=== PATIENT | female | born 1960 | race Caucasian/White ===

== ENCOUNTER 2020-11-19 15:53 | Outpatient (CLI) | payer OTHER, SELFPAY ==
--- NOTE | ~2020-11-19 | XR_ITS ---
XR shoulder LT min 2V 11/19/2020 16:22 Indication: Left shoulder pain Procedure: 4 views left shoulder Comparison: 04/01/2019 Findings: There is a left total shoulder arthroplasty. No acute fracture or traumatic malalignment. T here is anatomic alignment of the acromioclavicular joint. Left shoulder prosthesis well seated. No a cute fracture. No foreign bodies. Visualized lung parenchyma is unremarkable. Impression: 1: No acute bone or joint abnormality. Reviewed, dictated and finalized at location A. Impression: 1: No acute bone or joint abnormality.
== END 2020-11-19 15:54 | disposition home or self-care (01) ==
LOC: ANHIMG 16:05
DX: S46.012A Strain of muscle(s) and tendon(s) of the rotator cuff of left shoulder, initial encounter (principal); X58.XXXA Exposure to other specified factors, initial encounter
CPT/HCPCS: 73030

== ENCOUNTER 2022-03-06 08:28 | Outpatient (CLI) | payer SELFPAY ==
[2022-03-06 19:00] LABS: Basophils Percent Auto 0.7 % (0.2-1.2); Eosinophils Absolute Auto 0.1 K/mm3 (0-0.3); Eosinophils Percent Auto 1.2 % (0-4.4); Hematocrit 46.6 % (37.0-47.0); Hemoglobin 14.7 g/dL (12.0-15.0); Immature Granulocyte Absolute 0.01 K/mm3 (0.00-0.031); Immature Granulocyte Percent A 0.2 % (0-0.5); Lymphocytes Absolute Auto 2.32 K/mm3 (0.9-3.2); Lymphocytes Percent Auto 39.4 % (18.3-44.2); Mean Corpuscular HGB Conc 31.5 g/dl (32-36); Mean Corpuscular Hemoglobin 29.8 pg (26-34); Mean Corpuscular Volume 94.3 fl (80-100); Mean Platelet Volume 11.4 fl (7.4-10.4); Monocytes Absolute Auto 0.5 K/mm3 (0.1-0.6); Monocytes Percent Auto 7.6 % (2.6-8.5); Neutrophils Percent Auto 50.9 % (45.5-73.1); Platelet Count Result 229 k/mm3 (150-375); Red Blood Count 4.94 M/mm3 (4.2-5.4); Red Cell Distribution Width 13.8 % (11.5-14.5); White Blood Count 5.9 K/mm3 (4.5-10.0)
[2022-03-06 20:12] LABS: Alanine Aminotransferase 20 U/L (6-35); Albumin Level 4.2 g/dL (3.5-5.1); Alkaline Phosphatase 77 U/L (38-126); Anion Gap 8 mmol/L (8-16); Aspartate Amino Transferase 33 U/L (14-36); Bilirubin,Total 0.7 mg/dL (0.2-1.3); Blood Urea Nitrogen 20 mg/dL (7-17); Calcium 9.1 mg/dL (8.4-10.2); Carbon Dioxide 25 mmol/L (22-30); Chloride 105 mmol/L (98-107); Cholesterol 184 mg/dL (0-200); Estimated Glomerular Filt Rate > 60; Glucose 90 mg/dL (65-110); HDL Direct 55 mg/dL; Sodium 138 mmol/L (137-145); Triglycerides 72 mg/dL (<150)
[2022-03-06 20:26] LABS: LDL Cholesterol Direct 96 mg/dL
== END 2022-03-06 08:29 | disposition home or self-care (01) ==
PROVIDERS: PCP Nurse Practitioner Family; Visit Provider Nurse Practitioner
DX: Z13.6 Encounter for screening for cardiovascular disorders (principal); R53.83 Other fatigue; Z13.220 Encounter for screening for lipoid disorders
CPT/HCPCS: 36415; 80053; 80061; 84443; 85025

== ENCOUNTER 2022-03-25 10:05 | Outpatient (CLI) | payer SELFPAY ==
--- NOTE | 2022-03-25 10:14 | EST_ITS ---
Patient Info Name: Socorro Pearson Age: 61 years : 1960 Gender: Female Ht: 65 in Wt: 200 lbs BSA: 2.07 m2 Exam Date: 03/25/2022 11:10 AM Exam Location: [facility] Stress Patient Status: Outpatient Admit Date: 03/25/2022 Staff Ordering Physician: Leigh Chan NP Attending Provider: Leigh Chan NP Exercise Technologist: Isabel Mondragon RDCS Exercise Physician: Papo Gama DO Exam Type: CA stress test treadmill Study Info Indications R07.9 - Chest pain, unspecified A treadmill exercise stress test was performed. Summary 1. 1. Negative Valdo exercise stress test for ischemic ST changes by ECG criteria. 2. 2. Good functional capacity, achieving 8.9 METs of workload. 3. 3. Baseline hypertension. 4. 4. Appropriate HR response to exercise. 5. 5. Appropriate HR recovery at 1 minute post exercise. 6. 6. No imaging with stress testing. 7. 7. Patient informed of the above results. Protocol: Valdo Stress ECG Details Stage: REST Duration (min): 0 min : 55 sec Speed (mph): 0.0 Grade (%): 0 HR (bpm): 74 SBP (mmHg): 153 DBP (mmHg): 89 METS: --- Stage: REST Duration (min): 6 min : 0 sec Speed (mph): 0.0 Grade (%): 0 HR (bpm): 88 SBP (mmHg): 153 DBP (mmHg): 89 METS: --- Stage: STAGE 1 Duration (min): 1 min : 0 sec Speed (mph): 1.7 Grade (%): 10 HR (bpm): 94 SBP (mmHg): 153 DBP (mmHg): 89 METS: --- Stage: STAGE 1 Duration (min): 2 min : 0 sec Speed (mph): 1.7 Grade (%): 10 HR (bpm): 100 SBP (mmHg): 153 DBP (mmHg): 89 METS: --- Stage: STAGE 1 Duration (min): 3 min : 0 sec Speed (mph): 1.7 Grade (%): 10 HR (bpm): 105 SBP (mmHg): 153 DBP (mmHg): 89 METS: --- Stage: STAGE 2 Duration (min): 1 min : 0 sec Speed (mph): 2.5 Grade (%): 12 HR (bpm): 114 SBP (mmHg): 189 DBP (mmHg): 61 METS: --- Stage: STAGE 2 Duration (min): 2 min : 0 sec Speed (mph): 2.5 Grade (%): 12 HR (bpm): 125 SBP (mmHg): 175 DBP (mmHg): 81 METS: --- Stage: STAGE 2 Duration (min): 3 min : 0 sec Speed (mph): 2.5 Grade (%): 12 HR (bpm): 129 SBP (mmHg): 175 DBP (mmHg): 81 METS: --- Stage: STAGE 3 Duration (min): 1 min : 0 sec Speed (mph): 3.4 Grade (%): 14 HR (bpm): 145 SBP (mmHg): 175 DBP (mmHg): 81 METS: --- Stage: STAGE 3 Duration (min): 1 min : 0 sec Speed (mph): 3.4 Grade (%): 14 HR (bpm): 145 SBP (mmHg): 175 DBP (mmHg): 81 METS: --- Stage: RECOVERY Duration (min): 0 min : 59 sec Speed (mph): 0.0 Grade (%): 0 HR (bpm): 132 SBP (mmHg): 175 DBP (mmHg): 81 METS: --- Stage: RECOVERY Duration (min): 1 min : 59 sec Speed (mph): 0.0 Grade (%): 0 HR (bpm): 115 SBP (mmHg): 194 DBP (mmHg): 61 METS: --- Stage: RECOVERY Duration (mi
== END 2022-03-25 10:06 | disposition home or self-care (01) ==
PROVIDERS: PCP Nurse Practitioner Family; Visit Provider Nurse Practitioner
DX: R07.89 Other chest pain (principal)
CPT/HCPCS: 93017

== ENCOUNTER 2022-06-06 12:59 | Outpatient (CLI) | payer OTHER, SELFPAY ==
--- NOTE | ~2022-06-06 | US_ITS ---
EXAMINATION: US venous doppler LE RT DATE: 06/06/2022 13:37 INDICATION: Right lower leg pain. TECHNIQUE: Grayscale ultrasound images without and with compression and Doppler ultrasound images of the right lower extremity veins were obtained. COMPARISON: None. FINDINGS: The visualized portions of right common femoral vein, profunda (deep) femoral vein, femoral vein, pop liteal vein, peroneal veins, posterior tibial veins, and greater saphenous vein outflow are patent. T here is thrombus in right gastrocnemius vein. IMPRESSION: 1. Deep vein thrombosis involving right gastrocnemius vein. Reviewed, dictated and finalized at location A.
== END 2022-06-06 13:00 | disposition home or self-care (01) ==
PROVIDERS: PCP Family Medicine; Visit Provider Nurse Practitioner
DX: I82.461 Acute embolism and thrombosis of right calf muscular vein (principal)
CPT/HCPCS: 93971

== ENCOUNTER 2022-06-08 21:29 | Emergency (ER) | payer OTHER, SELFPAY ==
[2022-06-08 21:33] VITALS: BP 152/88; PULSE 79; RESP 18; TEMP 37.3; O2SAT 98
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
== END 2022-06-09 00:39 | disposition home or self-care (01) ==
PROVIDERS: Emergency Provider Emergency Medicine; PCP Family Medicine
DX: I82.461 Acute embolism and thrombosis of right calf muscular vein (principal); Z96.612 Presence of left artificial shoulder joint; Z79.01 Long term (current) use of anticoagulants
CPT/HCPCS: 99282

== ENCOUNTER 2022-06-10 08:04 | Outpatient (CLI) | payer OTHER, SELFPAY ==
--- NOTE | ~2022-06-10 | US_ITS ---
EXAMINATION: US venous doppler LE DATE: 06/10/2022 08:45 INDICATION: Right lower limb pain. TECHNIQUE: Grayscale ultrasound images without and with compression and Doppler ultrasound images of the bilateral lower extremity veins were obtained. COMPARISON: Ultrasound FINDINGS: The visualized portions of right common femoral vein, profunda (deep) femoral vein, femoral vein, pop liteal vein, peroneal veins, and posterior tibial veins are patent. There is thrombus in right gastro cnemius vein, lesser saphenous vein, and a calf varicose vein. The visualized portions of left common femoral vein, profunda femoral vein, femoral vein, popliteal v ein, posterior tibial veins, and greater saphenous vein outflow are patent. There is thrombus in a le ft peroneal vein. IMPRESSION: 1. Deep vein thrombosis involving right gastrocnemius vein and a left peroneal vein. 2. Superficial vein thrombosis involving right lesser saphenous vein and a right calf varicose vein. Reviewed, dictated and finalized at location A. R LEAGUE BASEBALL UMPIRE IMPRESSION: 1. Deep vein thrombosis involving right gastrocnemius vein and a left peroneal vein. 2. Superficial vein thrombosis involving right lesser saphenous vein and a righ t calf varicose vein.
== END 2022-06-10 08:05 | disposition home or self-care (01) ==
PROVIDERS: PCP Family Medicine; Visit Provider Family Medicine
DX: I82.463 Acute embolism and thrombosis of calf muscular vein, bilateral (principal)
CPT/HCPCS: 93970

== ENCOUNTER 2022-06-29 23:40 | Emergency (ER) | payer OTHER, SELFPAY ==
--- NOTE | ~2022-06-29 | CT_ITS ---
EXAMINATION: CTA chest PE protocol DATE: 06/30/2022 01:10 INDICATION: Left chest pain. TECHNIQUE: Computed tomography angiography (CTA) of the chest was performed with 100 mL Omnipaque-350 intravenous contrast timed to evaluate the pulmonary arteries. Coronal maximum intensity projection 3D-reconstructions were created by the technologist. Automated exposure control and iterative reconst ruction technique were employed. The dose-length product was 506.70 mGy-cm. COMPARISON: None. FINDINGS: The lungs demonstrate mild atelectasis. No pleural effusion. There is a 4 mm nodule in left thyroid lobe, likely not clinically significant. The heart size is normal. No pericardial effusion. There is a small sliding hiatal hernia. There is no pulmonary embolus. There is a small sliding hiata l hernia. There is mild left hydronephrosis. There is a left shoulder arthroplasty. There is mild chr onic anterior wedging of multiple vertebral bodies. There is moderate thoracic spondylosis. IMPRESSION: 1. No pulmonary embolus. 2. Mild left hydronephrosis. Reviewed, dictated and finalized at location A. RVISOR ORDER TAKERS
--- NOTE | 2022-06-29 23:42 | ECG_ITS ---
Measurements Intervals Shedd Rate: 80 P: 46 AK: 160 QRS: 18 QRSD: 100 T: 26 QT: 379 QTc: 439 Interpretive Statements SINUS RHYTHM BASELINE ARTIFACT- I, II, III, AVR, AVL, AVF NORMAL ECG NO PREVIOUS ECG AVAILABLE FOR COMPARISON Electronically Signed On 06-30-2022 10:37:43 HEAD OF ENGLISH by Papo Gama D.O.
[2022-06-29 23:59] VITALS: PULSE 69; RESP 19; O2SAT 100
[2022-06-30] VITALS (16 sets, daily range): BP systolic 152–187; BP diastolic 68–84; PULSE 57–78; RESP 12–20; TEMP 36.8; O2SAT 95–100
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
[2022-06-30 00:05] LABS: Basophils Percent Auto 0.5 % (0.2-1.2); Eosinophils Absolute Auto 0.1 K/mm3 (0-0.3); Eosinophils Percent Auto 1.4 % (0-4.4); Hematocrit 45.9 % (37.0-47.0); Hemoglobin 15.1 g/dL (12.0-15.0); Immature Granulocyte Absolute 0.01 K/mm3 (0.00-0.031); Immature Granulocyte Percent A 0.1 % (0-0.5); Lymphocytes Percent Auto 48.1 % (18.3-44.2); Mean Corpuscular HGB Conc 32.9 g/dl (32-36); Mean Corpuscular Hemoglobin 30.1 pg (26-34); Mean Corpuscular Volume 91.6 fl (80-100); Mean Platelet Volume 10.1 fl (7.4-10.4); Monocytes Absolute Auto 0.6 K/mm3 (0.1-0.6); Monocytes Percent Auto 7.7 % (2.6-8.5); Neutrophils Absolute Auto 3.5 K/mm3 (1.3-6.7); Neutrophils Percent Auto 42.2 % (45.5-73.1); Platelet Count Result 233 k/mm3 (150-375); Red Blood Count 5.01 M/mm3 (4.2-5.4); White Blood Count 8.3 K/mm3 (4.5-10.0)
[2022-06-30 00:22] LABS: Alanine Aminotransferase 30 U/L (6-35); Albumin Level 4.4 g/dL (3.5-5.1); Alkaline Phosphatase 90 U/L (38-126); Anion Gap 8 mmol/L (8-16); Aspartate Amino Transferase 33 U/L (14-36); Bilirubin,Total 0.4 mg/dL (0.2-1.3); Blood Urea Nitrogen 21 mg/dL (7-17); Calcium 10.3 mg/dL (8.4-10.2); Carbon Dioxide 25 mmol/L (22-30); Chloride 105 mmol/L (98-107); Estimated CRCL calculation 89 ml/min; Estimated Glomerular Filt Rate > 60; Glucose 105 mg/dL (65-110); INR 1.8; Lipase 556 U/L (23-300); Potassium 3.8 mmol/L (3.4-5.0); Prothrombin Time 19.9 Seconds (11.1-14.7); Sodium 138 mmol/L (137-145)
[2022-06-30 00:23] LABS: Partial Thromboplastin Time 35.3 SECONDS (22.3-36.8)
[2022-06-30] MEDS: SODIUM CHLORIDE 0.9% IV 1,000 ML 999 ML IV CONT (00:25)
[2022-06-30] MEDS: ASPIRIN 81 MG CHEWABLE TABLET 324 MG PO (00:26)
[2022-06-30 00:31] LABS: Troponin I < 0.012 ng/mL (0.000-0.034)
[2022-06-30 02:59] LABS: Troponin I < 0.012 ng/mL (0.000-0.034)
== END 2022-06-30 03:13 | disposition home or self-care (01) ==
PROVIDERS: Emergency Provider Emergency Medicine; PCP Family Medicine
DX: R07.89 Other chest pain (principal); M25.512 Pain in left shoulder; G89.29 Other chronic pain; Z86.718 Personal history of other venous thrombosis and embolism; Z96.612 Presence of left artificial shoulder joint; Z79.01 Long term (current) use of anticoagulants
CPT/HCPCS: 36415; 71275; 80053; 83690; 84484; 85025; 85610; 85730; 93005; 96360; 99284; A9270; J7030; Q9967

== ENCOUNTER 2022-09-02 09:07 | Outpatient (CLI) | payer OTHER, SELFPAY ==
--- NOTE | ~2022-09-02 | US_ITS ---
EXAMINATION: US venous doppler [facility] DATE: 09/02/2022 09:52 INDICATION: Lower limb swelling TECHNIQUE: Gonzalez scale images without and with compression and Doppler images of the bilateral lower e xtremity veins were obtained. COMPARISON: None 06/10/2022 FINDINGS: The right common femoral vein, profunda femoral vein, femoral vein, popliteal vein, peroneal trunk, p osterior tibial veins, and greater saphenous vein are patent. The left common femoral vein, profunda femoral vein, femoral vein, popliteal vein, peroneal trunk, po sterior tibial veins, and greater saphenous vein are patent. IMPRESSION: 1. Patent bilateral lower extremity veins. No evidence of deep venous thrombosis. Reviewed, dictated and finalized at location L. TING MACHINE OPERATOR IMPRESSION: 1. Patent bilateral lower extremity veins. No evidence of deep venous thrombosi s.
== END 2022-09-02 09:08 | disposition home or self-care (01) ==
PROVIDERS: PCP Family Medicine; Visit Provider Internal Medicine Hematology & Oncology
DX: I82.4Y3 Acute embolism and thrombosis of unspecified deep veins of proximal lower extremity, bilateral (principal)
CPT/HCPCS: 93970

== ENCOUNTER 2022-09-15 08:16 | Outpatient (CLI) | payer OTHER, SELFPAY ==
[2022-09-18 19:34] LABS: Homocysteine 5.9 umol/L (<10.4)
[2022-09-19 05:40] LABS: Antithrombin III Activity 116 % normal (80-135)
[2022-09-20 21:03] LABS: Lupus dRVVT Screen 30 sec (<=45); PTT-LA Screen 23 sec (<=40)
[2022-09-21 20:32] LABS: Factor V (Leiden) Mutation NEGATIVE
== END 2022-09-15 08:17 | disposition home or self-care (01) ==
LOC: ANHGOSHLAB 08:20
PROVIDERS: PCP Family Medicine; Visit Provider Internal Medicine Hematology & Oncology
DX: I82.4Y3 Acute embolism and thrombosis of unspecified deep veins of proximal lower extremity, bilateral (principal)
CPT/HCPCS: 36415; 81240; 81241; 83090; 85300; 85303; 85613; 85730; 86146

== ENCOUNTER 2022-10-27 10:59 | Outpatient (CLI) | payer OTHER, SELFPAY | END 2022-10-27 11:00 | disposition home or self-care (01) | LOC: ANHLAB 11:01 | PROVIDERS: PCP Family Medicine; Visit Provider Internal Medicine Hematology & Oncology | DX: I82.4Y3 Acute embolism and thrombosis of unspecified deep veins of proximal lower extremity, bilateral (principal) | CPT/HCPCS: 36415; 81240 ==

== ENCOUNTER 2022-12-21 08:39 | Emergency (ER) | payer OTHER, SELFPAY ==
[2022-12-21 08:49] VITALS: BP 140/70; PULSE 68; RESP 16; TEMP 36.6; O2SAT 100
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
== END 2022-12-21 09:12 | disposition home or self-care (01) ==
PROVIDERS: Emergency Provider Nurse Practitioner Family; PCP Family Medicine
DX: N39.0 Urinary tract infection, site not specified (principal); Z86.718 Personal history of other venous thrombosis and embolism
CPT/HCPCS: 81003; 87077; 87086; 87186; 99213; G0463

== ENCOUNTER 2022-12-30 08:29 | Emergency (ER) | payer OTHER, SELFPAY ==
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
[2022-12-30 08:43] VITALS: BP 131/71; PULSE 59; RESP 16; TEMP 36.6; O2SAT 98
== END 2022-12-30 09:15 | disposition home or self-care (01) ==
PROVIDERS: Emergency Provider Nurse Practitioner; PCP Family Medicine
DX: N39.0 Urinary tract infection, site not specified (principal); Z86.718 Personal history of other venous thrombosis and embolism
CPT/HCPCS: 81003; 87077; 87086; 87088; 99213; G0463

== ENCOUNTER 2023-01-19 16:36 | Emergency (ER) | payer OTHER, SELFPAY ==
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
[2023-01-19 16:45] VITALS: BP 155/82; PULSE 66; RESP 16; TEMP 36.2; O2SAT 99
== END 2023-01-19 16:58 | disposition home or self-care (01) ==
PROVIDERS: Emergency Provider Nurse Practitioner Family; PCP Family Medicine
DX: N30.01 Acute cystitis with hematuria (principal); B96.1 Klebsiella pneumoniae [K. pneumoniae] as the cause of diseases classified elsewhere; Z86.718 Personal history of other venous thrombosis and embolism
CPT/HCPCS: 81003; 87077; 87086; 87147; 87181; 87186; 99213; G0463

== ENCOUNTER 2023-02-20 08:56 | Outpatient (CLI) | payer OTHER, SELFPAY ==
[2023-02-20 09:18] LABS: Basophils Percent Auto 0.6 % (0.2-1.2); Eosinophils Percent Auto 0.8 % (0-4.4); Hematocrit 46.3 % (37.0-47.0); Hemoglobin 14.9 g/dL (12.0-15.0); Immature Granulocyte Absolute 0.01 K/mm3 (0.00-0.031); Immature Granulocyte Percent A 0.2 % (0-0.5); Lymphocytes Absolute Auto 1.62 K/mm3 (0.9-3.2); Mean Corpuscular HGB Conc 32.2 g/dl (32-36); Mean Corpuscular Hemoglobin 30.2 pg (26-34); Mean Corpuscular Volume 93.7 fl (80-100); Mean Platelet Volume 10.4 fl (7.4-10.4); Monocytes Absolute Auto 0.4 K/mm3 (0.1-0.6); Monocytes Percent Auto 8.4 % (2.6-8.5); Neutrophils Absolute Auto 3.1 K/mm3 (1.3-6.7); Platelet Count Result 228 k/mm3 (150-375); Red Blood Count 4.94 M/mm3 (4.2-5.4); Red Cell Distribution Width 13.2 % (11.5-14.5); White Blood Count 5.2 K/mm3 (4.5-10.0)
[2023-02-20 09:20] LABS: Blood Urea Nitrogen 20 mg/dL (8-26); Carbon Dioxide 26 mmol/L (22-30); Chloride 105 mmol/L (98-109); Estimated Glomerular Filt Rate > 60; Glucose 106 mg/dL (70-105); Ionized Calcium (POC) 1.24 mmol/L (1.11-1.31); Potassium 3.8 mmol/L (3.5-4.9); Sodium 142 mmol/L (138-146)
[2023-02-20 12:30] LABS: Alanine Aminotransferase 27 U/L (6-35); Albumin Level 4.5 g/dL (3.5-5.1); Alkaline Phosphatase 73 U/L (38-126); Anion Gap 8 mmol/L (8-16); Aspartate Amino Transferase 32 U/L (14-36); Bilirubin,Total 0.5 mg/dL (0.2-1.3); Blood Urea Nitrogen 19 mg/dL (7-17); Calcium 9.5 mg/dL (8.4-10.2); Carbon Dioxide 27 mmol/L (22-30); Chloride 105 mmol/L (98-107); Estimated Glomerular Filt Rate > 60; Glucose 98 mg/dL (65-110); Potassium 3.9 mmol/L (3.4-5.0); Sodium 140 mmol/L (137-145)
== END 2023-02-20 08:57 | disposition home or self-care (01) ==
LOC: ANHLAB 08:57
PROVIDERS: PCP Family Medicine; Visit Provider Internal Medicine Hematology & Oncology
DX: I82.4Y3 Acute embolism and thrombosis of unspecified deep veins of proximal lower extremity, bilateral (principal)
CPT/HCPCS: 36415; 80047; 80053; 85025

== ENCOUNTER 2023-08-25 09:17 | Outpatient (CLI) | payer MEDICARE, OTHER, SELFPAY ==
[2023-08-25 09:32] LABS: Basophils Percent Auto 0.3 % (0.2-1.2); Eosinophils Absolute Auto 0.1 K/mm3 (0-0.3); Eosinophils Percent Auto 1.4 % (0-4.4); Hematocrit 46.3 % (37.0-47.0); Hemoglobin 14.8 g/dL (12.0-15.0); Immature Granulocyte Absolute 0.02 K/mm3 (0.00-0.031); Immature Granulocyte Percent A 0.3 % (0-0.5); Lymphocytes Percent Auto 27.5 % (18.3-44.2); Mean Corpuscular Hemoglobin 30.6 pg (26-34); Mean Corpuscular Volume 95.9 fl (80-100); Mean Platelet Volume 10.4 fl (7.4-10.4); Monocytes Absolute Auto 0.5 K/mm3 (0.1-0.6); Neutrophils Absolute Auto 4.2 K/mm3 (1.3-6.7); Neutrophils Percent Auto 63.5 % (45.5-73.1); Platelet Count Result 244 k/mm3 (150-375); Red Blood Count 4.83 M/mm3 (4.2-5.4); Red Cell Distribution Width 12.8 % (11.5-14.5); White Blood Count 6.6 K/mm3 (4.5-10.0)
[2023-08-25 09:35] LABS: Blood Urea Nitrogen 20 mg/dL (8-26); Carbon Dioxide 29 mmol/L (22-30); Chloride 104 mmol/L (98-109); Estimated Glomerular Filt Rate > 60; Glucose 91 mg/dL (70-105); Ionized Calcium (POC) 1.23 mmol/L (1.11-1.31); Potassium 3.9 mmol/L (3.5-4.9); Sodium 144 mmol/L (138-146)
[2023-08-25 10:44] LABS: Alanine Aminotransferase 23 U/L (6-35); Albumin Level 4.3 g/dL (3.5-5.1); Alkaline Phosphatase 73 U/L (38-126); Anion Gap 8 mmol/L (8-16); Aspartate Amino Transferase 28 U/L (14-36); Bilirubin,Total 0.6 mg/dL (0.2-1.3); Blood Urea Nitrogen 19 mg/dL (7-17); Calcium 9.6 mg/dL (8.4-10.2); Carbon Dioxide 27 mmol/L (22-30); Chloride 107 mmol/L (98-107); Estimated Glomerular Filt Rate > 60; Glucose 91 mg/dL (65-110); Sodium 142 mmol/L (137-145)
== END 2023-08-25 09:18 | disposition home or self-care (01) ==
LOC: ANHLAB 09:21
PROVIDERS: PCP Family Medicine; Visit Provider Internal Medicine Hematology & Oncology
DX: I82.4Y3 Acute embolism and thrombosis of unspecified deep veins of proximal lower extremity, bilateral (principal)
CPT/HCPCS: 36415; 80047; 80053; 85025

== ENCOUNTER 2023-11-09 14:58 | Outpatient (CLI) | payer MEDICARE, OTHER, SELFPAY ==
--- NOTE | ~2023-11-09 | MM_ITS ---
EXAMINATION: MM screening franck BI w jose guadalupe HISTORY: Screening mammogram TECHNIQUE: Craniocaudal and mediolateral oblique 3-D tomosynthesis images were obtained and synthetic 2-D images were generated. CAD analysis was submitted and interpreted. COMPARISON: No prior mammogram is available for comparison at this institution. BREAST PARENCHYMAL COMPOSITION: The breasts are heterogeneously dense, which may obscure small masses . FINDINGS: There is no evidence of suspicious mass, calcification, or architectural distortion to sugg est malignancy in either breast. IMPRESSION: 1. No mammographic evidence of malignancy. 2. Recommend routine screening mammography in one year. BI-RADS Category 1: Negative Reviewed, dictated and finalized at location B.
== END 2023-11-09 14:59 | disposition home or self-care (01) ==
LOC: ANHIMG 15:01
PROVIDERS: PCP Family Medicine; Visit Provider Nurse Practitioner Family
DX: Z12.31 Encounter for screening mammogram for malignant neoplasm of breast (principal)
CPT/HCPCS: 77063; 77067

== ENCOUNTER 2024-02-23 07:48 | Outpatient (CLI) | payer MEDICARE, OTHER, SELFPAY | END 2024-02-23 07:49 | disposition home or self-care (01) | LOC: ANHAUDIO 07:50 | PROVIDERS: PCP Family Medicine; Visit Provider Nurse Practitioner Family | DX: H93.19 Tinnitus, unspecified ear (principal); H90.3 Sensorineural hearing loss, bilateral | CPT/HCPCS: 92557; 92567 ==

== ENCOUNTER 2024-02-23 10:00 | Outpatient (CLI) | payer MEDICARE, OTHER, SELFPAY ==
[2024-02-23 10:29] LABS: Basophils Percent Auto 0.4 % (0.2-1.2); Eosinophils Percent Auto 0.4 % (0-4.4); Hematocrit 46.3 % (37.0-47.0); Hemoglobin 14.9 g/dL (12.0-15.0); Immature Granulocyte Absolute 0.01 K/mm3 (0.00-0.031); Immature Granulocyte Percent A 0.2 % (0-0.5); Lymphocytes Absolute Auto 1.55 K/mm3 (0.9-3.2); Lymphocytes Percent Auto 28.9 % (18.3-44.2); Mean Corpuscular HGB Conc 32.2 g/dl (32-36); Mean Corpuscular Volume 93.2 fl (80-100); Mean Platelet Volume 10.6 fl (7.4-10.4); Monocytes Absolute Auto 0.4 K/mm3 (0.1-0.6); Monocytes Percent Auto 7.8 % (2.6-8.5); Neutrophils Absolute Auto 3.3 K/mm3 (1.3-6.7); Neutrophils Percent Auto 62.3 % (45.5-73.1); Platelet Count Result 203 k/mm3 (150-375); Red Blood Count 4.97 M/mm3 (4.2-5.4); Red Cell Distribution Width 12.7 % (11.5-14.5); White Blood Count 5.4 K/mm3 (4.5-10.0)
[2024-02-23 10:33] LABS: Blood Urea Nitrogen 20 mg/dL (8-26); Carbon Dioxide 25 mmol/L (22-30); Chloride 106 mmol/L (98-109); Estimated Glomerular Filt Rate > 60; Glucose 94 mg/dL (70-105); Ionized Calcium (POC) 1.23 mmol/L (1.11-1.31); Sodium 142 mmol/L (138-146)
[2024-02-23 11:47] LABS: Cholesterol 186 mg/dL (0-200); HDL Direct 54 mg/dL; Triglycerides 79 mg/dL (<150)
[2024-02-23 11:58] LABS: LDL Cholesterol Direct 99 mg/dL
[2024-02-23 13:28] LABS: Hemoglobin A1C 5.5 % (<5.7)
== END 2024-02-23 10:01 | disposition home or self-care (01) ==
LOC: ANHLAB 10:02
PROVIDERS: Nurse Practitioner Family; PCP Family Medicine; Visit Provider Internal Medicine Hematology & Oncology
DX: R73.03 Prediabetes (principal); I10 Essential (primary) hypertension; E78.5 Hyperlipidemia, unspecified; I82.4Y3 Acute embolism and thrombosis of unspecified deep veins of proximal lower extremity, bilateral
CPT/HCPCS: 36415; 80047; 80061; 83036; 85025; 92557; 92567

== ENCOUNTER → 2024-03-22 09:07 | Outpatient (REF) | payer MEDICARE, OTHER, SELFPAY | LOC: ANHLAB 09:07 | PROVIDERS: PCP Family Medicine; Visit Provider Plastic Surgery | DX: L72.11 Pilar cyst (principal) | CPT/HCPCS: 88305 ==

== ENCOUNTER 2024-09-03 08:02 | Emergency (ER) | payer MEDICARE, OTHER, SELFPAY ==
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
--- OUTSIDE RECORDS SUMMARY | 2024-09-03 08:13 | XMS_ITS | Referral Summary ---
Author Organization [facility] Address [address] [place] [id number] Care Team Providers Care Pharmacology Associate Name Role Phone Joseluis Crisostomo MD Primary Care Provider Allergies No known active allergies Medications multivitamin capsuleIndicati ons:Vitamin Deficiency Prevention Take 1 capsule by mouth every morning Active Active Problems Problem Noted Date Diagnosed Date Nontraumatic complete tear of left rotator cuff 09/20/2019 Overview (09/20/2019): Added automatically from request for surgery [id number] Primary osteoarthritis of left shoulder 09/20/19 20 Overview (09/20/2019): Added automatically from request for surgery [id number] Left shoulder pain 09/06/2019 Social History Tobacco Use Types Packs/Day Years [...] on file Legal Sex Female 8:05 AM GRIP Gender Identity Not on file Sexual Orientation Not on file Last Filed Vital Signs Vital Sign Reading [...] 12/14/2019 6:12 AM CDT Plan of Treatment Not on file Medical Devices Implanted Type Area Shank Inspector Device Identifier Shelf Expiration Date Model / Serial / Lot [employer] [id number] Base Plate 26mm Tm Reverse 20m - Sn/A - [id number] Implanted:Qty: 1 on 12/14/2019 by Oscar Martini MD at [facility] Other - see comments Left: Shoulder [employer] 09/02/2029 [id number] / N/A / [id number] [employer] 23.030 Ncb Anatomical Shoulder 4.5mm 30mm Inverse Reverse Lock Self Tap - Sn/A - [id number] Implanted:Qty: 1 on 12/14/2019 by Oscar Martini MD at [facility] Other - see comments Left: Shoulder [employer] 06/02/2024.04819.030 / N/A / [id number] [employer] [id number] 10mm 130mm Shoulder Stem Humeral Trabecular Metal Tivanium - Sn/A - [id number] Implanted:Qty: 1 on 12/14/2019 by Oscar Martini MD at [facility] Other - see comments Left: Shoulder [employer] 09/02/2029 [id number] / N/A / [id number] [employer] [id number] 36mm Reverse Humerus 7d +0mm Offset Standard Liner Shoulder - Sn/A - [id number] Implanted:Qty: 1 on 12/14/2019 by Oscar Martini MD at [facility] Other - see comments Left: Shoulder [employer] 08/02/2026 [id number] / N/A / [id number] [employer] 23.036 Ncb Anatomical Shoulder 4.5mm 36mm Inverse Reverse Lock Self Tap - Sn/A - [id number] Implanted:Qty: 1 on 12/14/2019 by Oscar Martini MD at [facility] Screw Left: Shoulder [employer] 04/02/202423.036 / N/A / [id number] Description:REF 036 [employer] [id number] Glenosphere 36mm +5mm Offset - Sn/A - [id number] Implanted:Qty: 1 on 12/14/2019 by Oscar Martini MD at [facility] Left: Shoulder [employer] 04/02/2029 [id number] / N/A / [id number] Description:REF [id number] Advance Directives For more information, please contact: [phone] * Full Code (Latest Code Status on File) Date Activated Date Inactivated Comments 12/14/2019 10:54 AM 12/15/2019 3:29 PM Care Teams Pharmacology Associate Relationship Specialty Start Date End Date Joseluis Crisostomo MD PCP - General Family Practice 01/07/22
--- OUTSIDE RECORDS SUMMARY | 2024-09-03 08:13 | XMS_ITS | Clinical Summary ---
Author Organization [facility] Kasandra leary [facility] Address [address] [place] [address] Care Team Providers Care Certified Health Education Specialist Name Role Phone Joseluis Crisostomo MD Primary Care Provider Allergies No known active allergies Medications lisinopriL (PRINIVIL) 10 mg tablet Take 10 mg by mouth daily. Active rivaroxaban (Xarelto) 10 mg Tablet TAKE 1 TABLET(10 MG) BY MOUTH DAILY WITH SUPPER 90 Tablet 1 04/05/2024 Active Active Problems No known active problems Encounters Date Type Department Care Team Description 08/24/2024 External Device Data STL ABSTRACTION Provider, Abstract from Last 3 Months Family History Medical History Relation Name Comments No Known Problems Brother 1 Hypertension Brother 2 No Known Problems Daughter 1 No Known Problems Daughter 2 No Known Problems Daughter 3 Heart Disease Father Alzheimer's Disease Mother No Known Problems Son Relation Name Status Comments Brother 1 Alive Brother 2 Alive Daughter 1 Alive Daughter 2 Alive Daughter 3 Alive Father Mother Son Alive Social History Tobacco Use Types Packs/Day Years Used Date Smoking Tobacco: Never Smokeless Tobacco: Never Tobacco Cessation:Counseling Given: Not Answered Alcohol Use Standard Drinks/Week Comments Never 0 (1 standard drink = 0.6 oz pur e alcohol) Comments Unknown Sex and Gender Information Value Date Recorded Sex Assigned at Not on file Legal Sex Female 4:23 PM BLUE LINE HANGER Gender Identity Not on file Sexual Orientation Not on file Last Filed Vital Signs Vital Sign Reading Time Taken Comments Blood Pressure 139/81 02/23/2024 10:34 AM CDT Pulse 69 02/23/2024 10:34 AM CDT Temperature 36.8 ??C (98.2 ??F) 02/23/2024 10:34 AM C DT Respiratory Rate 15 02/23/2024 10:34 AM CDT Oxygen Saturation 97% 02/23/2024 10:34 AM CDT Inhaled Oxygen Concentration - - Weight 75.5 kg (166 lb 6.4 oz) 02/23/2024 10:34 AM CDT Height 165.1 cm (5' 5 ) 07/21/2022 2:59 PM BLUE LINE HANGER Body Mass Index 27.69 07/21/2022 2:59 PM BLUE LINE HANGER Plan of Treatment Upcoming Encounters Date Type Department Care Team (Late st Contact Info) Description 02/28/2025 10:00 AM CDT Office Visit [facility] Oncology and Hematology - [place] [address] [facility] [address] [place] [address] Sea Cha MD [address] [facility] [employer] [address] [place] [address] Health Maintenance Due Date Last Done Comments Pre-Diabetes and Diabetes Screening 1958 DTAP/TDAP/TD VACCINES (1 - Tdap) 1977 BREAST CANCER SCREENING 1998 COLORECTAL SCREENING 2003 Colorectal Cancer Screening 2003 FIT-DNA Q 3 years 2003 FIT/FOBT Q 1 year 2003 Flex Sig/CT Colonography Q 5 years 2003 PNEUMOCOCCAL VACCINE 65+ YEARS (1 of 1 - PCV) 05/12/20 08 ZOSTER VACCINE (1 of 2) 2008 OSTEOPOROSIS SCREENING 2023 INFLUENZA VACCINE (#1) 2024 RSV VACCINE (60+ or ) (1 - 1-dose 75+ series) 2033 Insurance [facility] [place] [address] MEDICARE PART A AND B Care Teams Certified Health Education Specialist Relationship Specialty Start Date End Date Joseluis Crisostomo MD [address] [place] [phone] PCP - General Family Practice 07/21/22
[2024-09-03 08:19] VITALS: BP 137/65; PULSE 77; RESP 18; TEMP 36.6; O2SAT 100
[2024-09-03 08:36] LABS: EDUAAPPEAR Clear; EDUABILI Negative (Negative); EDUABLOOD Negative (Negative); EDUACOLOR1 Yellow; EDUAGLUCOSE Negative (Negative); EDUAKETONE Negative (Negative); EDUALEUKO Trace (Negative); EDUANITRATE Negative (Negative); EDUAPROTEIN Negative (Negative); EDUASPGRAVITY 1.015; EDUAUROBILI 0.2
== END 2024-09-03 08:42 | disposition home or self-care (01) ==
PROVIDERS: Emergency Provider Nurse Practitioner Family; PCP Family Medicine
DX: R30.0 Dysuria (principal); Z86.718 Personal history of other venous thrombosis and embolism; Z79.01 Long term (current) use of anticoagulants
CPT/HCPCS: 81003; 87086; 99213; G0463

== ENCOUNTER 2025-02-28 09:50 | Outpatient (CLI) | payer MEDICARE, OTHER, SELFPAY ==
--- OUTSIDE RECORDS SUMMARY | 2025-02-28 09:59 | XMS_ITS | Clinical Summary ---
Author Organization [facility] Address [address] [place] [address] Care Team Providers Care Product Management Intern Name Role Phone Joseluis Crisostomo MD Primary Care Provider Allergies No known active allergies Medications multivitamin capsuleIndicati ons:Vitamin Deficiency Prevention Take 1 capsule by mouth every morning Active Active Problems Problem Noted Date Diagnosed Date Nontraumatic complete tear of left rotator cuff 09/20/2019 Overview (09/20/2019): Added automatically from request for surgery [id number] Primary osteoarthritis of left shoulder 09/20/19 20 Overview (09/20/2019): Added automatically from request for surgery [id number] Left shoulder pain 09/06/2019 Encounters Date Type Department Care Team Description 12/27/2024 10:00 AM CDT - 12/27/2024 11:59 PM CDT Hospital Encounter [facility] Radiology at [facility] [address] [place] [address] S/P orthopedic surgery, follow-up exam Discharge Disposition: Discharge to home or self care 12/27/2024 9:50 AM CDT Office Visit [facility] Orthopaedic Surgery [address] [facility] 1st Floor [address] [place] [address] Oscar Martini MD S/P orthopedic surgery, follow-up exam (Primary Dx); Nontraumatic complete tear of left rotator cuff from Last 3 Months Surgical History Surgery Date Site/Laterality Comments DILATION [...] on file 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 Gender Identity Not on file Sexual Orientation Not on file Obstetrics History Last Filed Vital Signs Vital Sign Reading Time Taken Comments Blood Pressure 126/58 12/15/2019 9:19 AM CDT Pulse 63 12/15/2019 9:19 AM CDT Temperature 36.5 C (97.7 F) 12/15/2019 8:00 AM CDT Respiratory Rate 16 12/15/2019 8:00 AM CDT Oxygen Saturation 96% 12/15/2019 9:19 AM CDT Inhaled Oxygen Concentration - - Weight 79.4 kg (175 lb) 12/14/2019 6:12 AM CDT Height 165.1 cm (5' 5) 12/14/2019 6:12 AM CDT Body Mass Index 29.12 12/14/2019 6:12 AM CDT Plan of Treatment Health Maintenance Due Date Last Done Comments Breast Cancer Screening-Mammogram 1958 Colon Cancer Screening-Colonoscopy 1958 Depression Screening 1958 Hepatitis C Screening 1958 Osteoporosis Screening-Bone Density Scan 1958 DTaP/Tdap/Td Vaccine (1 - Tdap) 1969 Hepatitis B Screening 1976 Pneumococcal vaccine 65+ (1 of 1 - PCV) 2008 Zoster Vaccine (2 of 2) 10/22/2019 08/27/2019 Fall Risk Assessment 12/14/2020 12/15/2019 Well Visit 65+ 2023 Influenza Vaccine (#1) 2025 Medical Devices Implanted Type Area Corporate Security Manager Device Identifier Shelf Expiration Date Model / Serial / Lot [employer] [id number] Base Plate 26mm Tm Reverse 20m - Sn/A - [id number] Implanted:Qty: 1 on 12/14/2019 by Oscar Martini MD at [facility] Other - see comments Left: Shoulder [employer] 09/02/2029 [id number] / N/A / [id number] [employer] 23.030 Ncb Anatomical Shoulder 4.5mm 30mm Inverse Reverse Lock Self Tap - Sn/A - [id number] Implanted:Qty: 1 on 12/14/2019 by Oscar Martini MD at [facility] Other - see comments Left: Shoulder [employer] 06/02/202423.030 / N/A / [id number] [employer] [id number] 10mm 130mm Shoulder Stem Humeral Trabecular Metal Tivanium - Sn/A - [id number] Implanted:Qty: 1 on 12/14/2019 by Oscar Martini MD at [facility] Other - see comments Left: Shoulder [employer] 09/02/2029 [id number] / N/A / [id number] [employer] [id number] 36mm Reverse Humerus 7d +0mm Offset Standard Liner Shoulder - Sn/A - [id number] Implanted:Qty: 1 on 12/14/2019 by Oscar Martini MD at [facility] Other - see comments Left: Shoulder [employer] 08/02/2026 [id number] / N/A / [id number] [employer] .036 Ncb Anatomical Shoulder 4.5mm 36mm Inverse Reverse Lock Self Tap - Sn/A - [id number] Implanted:Qty: 1 on 12/14/2019 by Oscar Martini MD at [facility] Screw Left: Shoulder [employer] 04/02/202423.036 / N/A / [id number] Description:REF [employer] [id number] Glenosphere 36mm +5mm Offset - Sn/A - [id number] Implanted:Qty: 1 on 12/14/2019 by Oscar Martini MD at [facility] Left: Shoulder [employer] 04/02/2029 [id number] / N/A / [id number] Description:REF [id number] Procedures Procedure Name Priority Date/Time Associated Diagnosis Comments XR SHOULDER LEFT 2 OR MORE VIEWS Schedule Routine, Read Routine (OP Routine) 12/27/2024 10:03 AM CDT S/P orthopedic surgery, follow-up exam from Last 3 Months Results * XR Shoulder Left 2 or More Views (12/27/2024 10:03 AM CDT) Anatomical Region Laterality Modality Upper Extremities, Shoulder Left Comp uted Radiography 12/27/2024 10:3 7 AM CDT Impressions 12/27/2024 10:37 AM CDT 1. Unchanged left reverse total arthroplasty in near-anatomic position. Electronically signed by: Lino Alcala MD, PHD Narrative 12/27/2024 10:37 AM CDT EXAMINATION: Left shoulder 2+ views HISTORY: Left shoulder arthroplasty, follow-up FINDINGS: 4 radiographs left shoulder compared to prior radiographs from 01/07/2022. The left reverse total shoulder arthroplasty appears unchanged and in near-anatomic position without periprosthetic fracture or component migration. Mild acromioclavicular osteoarthritis appears unchanged. Procedure Note Lino Alcala MD PhD - 12/27/2024 EXAMINATION: Left shoulder 2+ views HISTORY: Left shoulder arthroplasty, follow-up FINDINGS: 4 radiographs left shoulder compared to prior radiographs from 01/07/2022. The left reverse total shoulder arthroplasty appears unchanged and in near-anatomic position without periprosthetic fracture or component migration. Mild acromioclavicular osteoarthritis appears unchanged. IMPRESSION: 1. Unchanged left reverse total arthroplasty in near-anatomic position. Electronically signed by: Lino Alcala MD, PHD us Oscar Martini MD IMG XR PROCEDURES Fin al Result from Last 3 Months Insurance MEDICARE [facility] MEDICARE [facility] Advance Directives For more information, please contact: [phone] * Full Code (Latest Code Status on File) Date Activated Date Inactivated Comments 12/14/2019 10:54 AM 12/15/2019 3:29 PM Care Teams Product Management Intern Relationship Specialty Start Date End Date Joseluis Crisostomo MD PCP - General Family Practice 01/07/22
--- OUTSIDE RECORDS SUMMARY | 2025-02-28 09:59 | XMS_ITS | Encounter Summary ---
Author Organization [facility] [employer] [facility] Address [address] [place] [address] Care Team Providers Care Flare Breaker Name Role Phone Joseluis Crisostomo MD Primary Care Provider Encounter Details Date Type Department Care Team (Late Contact Info) Description 02/27/2025 Orders Only [facility] Oncology and Hematology [address] [place] [address] Sea Cha MD [address] [place] [address] Acute deep vein thrombosis (DVT) of proximal vein of both lower extremities (CMS/HCC) (Primary Dx) Social History Tobacco Use Types Packs/Day Years Used Date Smoking Tobacco: Never Smokeless Tobacco: Never Alcohol Use Standard Drinks/Week Comments Never 0 (1 standard drink = 0.6 oz pur e alcohol) Comments Unknown Sex and Gender Information Value Date Recorded Sex Assigned at Not on file 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 Gender Identity Not on file Sexual Orientation Not on file documented as of this encounter Plan of Treatment Upcoming Encounters Date Type Department Care Team (Late Contact Info) Description 02/28/2025 10:00 AM CDT Office Visit [facility] Oncology and Hematology - A[address] [place] [address] Sea Cha MD [address] [place] [address] Scheduled Orders Name Type Priority Associated Diagnoses Orde r Schedule BASIC METABOLIC PANEL Lab Routine Acute deep vein thrombosis (DVT) of proximal vein of both lower extremities (CMS/HCC) Expected: 02/27/2025, Expires: 02/27/2026 CBC WITH DIFFERENTIAL Lab Routine Acute deep vein thrombosis (DVT) of proximal vein of both lower extremities (CMS/HCC) Expected: 02/27/2025, Expires: 02/27/2026 documented as of this encounter Visit Diagnoses Diagnosis Acute deep vein thrombosis (DVT) of proximal vein of both lower extremities (CMS/HCC)- Primary documented in this encounter Care Teams Flare Breaker Relationship Specialty Start Date End Date Joseluis Crisostomo MD [address] [place] [phone] PCP - General Family Practice 07/21/22 documented as of this encounter
--- OUTSIDE RECORDS SUMMARY | 2025-02-28 09:59 | XMS_ITS | Clinical Summary ---
Author Organization [facility] Kasandra Randall Address [address] [place] [address] Care Team Providers Care Mold Runner Name Role Phone Joseluis Crisostomo MD Primary Care Provider Allergies No known active allergies Medications lisinopriL (PRINIVIL) 10 mg tablet Take 10 mg by mouth daily. Active rivaroxaban (Xarelto) 10 mg Tablet TAKE 1 TABLET(10 MG) BY MOUTH DAILY WITH SUPPER 90 Tablet 3 09/30/2024 Active Active Problems No known active problems Encounters Date Type Department Care Team Description 02/27/2025 Orders Only [facility] Oncology and Hematology - [place] [address] [address] Sea Cha MD Acute deep vein thrombosis (DVT) of proximal vein of both lower extremities (CMS/HCC) (Primary Dx) 02/15/2025 External Device Data STL ABSTRACTION Provider, Abstract 02/15/2025 External Device Data STL ABSTRACTION Provider, Abstract 02/14/2025 External Device Data STL ABSTRACTION Provider, Abstract 12/21/2024 External Device Data STL ABSTRACTION Provider, Abstract 12/20/2024 External Device Data STL ABSTRACTION Provider, Abstract [...] on file 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 Gender Identity Not on file Sexual Orientation Not on file Last Filed Vital Signs Vital Sign Reading Time Taken Comments Blood Pressure 139/81 02/23/2024 10:34 AM CDT Pulse 69 02/23/2024 10:34 AM CDT Temperature 36.8 C (98.2 F) 02/23/2024 10:34 AM CDT Respiratory Rate 15 02/23/2024 10:34 AM CDT Oxygen Saturation 97% 02/23/2024 10:34 AM CDT Inhaled Oxygen Concentration - - Weight 75.5 kg (166 lb 6.4 oz) 02/23/2024 10:34 AM CDT Height 165.1 cm (5' 5) 07/21/2022 2:59 PM BUSINESS CONSULTANT Body Mass Index 27.69 07/21/2022 2:59 PM BUSINESS CONSULTANT Plan of Treatment Upcoming Encounters Date Type Department Care Team (Late st Contact Info) Description 02/28/2025 10:00 AM CDT Office Visit [facility] Oncology and Hematology [facility] [address] [place] [address] [facility] [address] [place] [address] Sea Cha MD [address] [facility] [address] [place] [address] Health Maintenance Due Date Last Done Comments DTAP/TDAP/TD VACCINES (1 - Tdap) 1977 Traditional Medicare (ACO) A nnual Wellness Visit 1977 COLORECTAL SCREENING 2003 Colorectal Cancer Screening 2003 FIT-DNA Q 3 years 2003 FIT/FOBT Q 1 year 2003 Flex Sig/CT Colonography Q 5 years 2003 PNEUMOCOCCAL VACCINE 50+ YEA RS (1 of 1 - PCV) 2008 ZOSTER VACCINE (1 of 2) 2008 OSTEOPOROSIS SCREENING 2023 BREAST CANCER SCREENING 11/08/2024 11/09/2023, 11/08 INFLUENZA VACCINE (#1) 2025 RSV VACCINE (60+ or ) (1 - 1-dose 75+ series) 2033 Insurance [facility] MEDICARE PART A AND B Care Teams Mold Runner Relationship Specialty Start Date End Date Joseluis Crisostomo MD [address] [place] [address] PCP - General Family Practice 07/21/22
--- OUTSIDE RECORDS SUMMARY | 2025-02-28 09:59 | XMS_ITS | Referral Summary ---
Author Organization [facility] Address [address] [place] [address] Care Team Providers Care Communications Tower Climber Name Role Phone Joseluis Crisostomo MD Primary Care Provider Encounters Date Type Department Care Team Description 12/27/2024 10:00 AM CDT - 12/27/2024 11:59 PM CDT Hospital Encounter [facility] Radiology at [facility] [address] [place] [address] S/P orthopedic surgery, follow-up exam Discharge Disposition: Discharge to home or self care 12/27/2024 9:50 AM CDT Office Visit [facility] Orthopaedic Surgery [address] [facility] 1st Floor [address] [place] [address] Oscar Martini MD S/P orthopedic surgery, follow-up exam (Primary Dx); Nontraumatic complete tear of left rotator cuff from Last 3 Months Allergies No known active allergies Medications multivitamin capsuleIndicati ons:Vitamin Deficiency Prevention Take 1 capsule by mouth every morning Active Active Problems Problem Noted Date Diagnosed Date Nontraumatic complete tear of left rotator cuff 09/20/2019 Overview (09/20/2019): Added automatically from request for surgery [id number] Primary osteoarthritis of left shoulder 09/20/19 20 Overview (09/20/2019): Added automatically from request for surgery [id number] Left shoulder pain 09/06/2019 Social History Tobacco [...] on file 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 Gender Identity Not on file Sexual Orientation [...] on file Medical Devices Implanted Type Area Nitric Acid Plant Operator Device Identifier Shelf Expiration Date Model / Serial / Lot [employer] [id number] Base Plate 26mm Tm Reverse 20m - Sn/A - [id number] Implanted:Qty: 1 on 12/14/2019 by Oscar Martini MD at [facility] Other - see comments Left: Shoulder [employer] 09/02/2029 [id number] / N/A / [id number] [employer] 23.030 Ncb Anatomical Shoulder 4.5mm 30mm Inverse Reverse Lock Self Tap - Sn/A - [id number] Implanted:Qty: 1 on 12/14/2019 by Oscar Martini MD at [facility] Other - see comments Left: Shoulder [employer] 06/02/202423.030 / N/A / [id number] [employer] [id number] 10mm 130mm Shoulder Stem Humeral Trabecular Metal Tivanium - Sn/A - [id number] Implanted:Qty: 1 on 12/14/2019 by Oscar Martini MD at [facility] Other - see comments Left: Shoulder [employer] 09/02/2029 [id number] / N/A / [id number] [employer] [id number] 36mm Reverse Humerus 7d +0mm Offset Standard Liner Shoulder - Sn/A - [id number] Implanted:Qty: 1 on 12/14/2019 by Oscar Martini MD at [facility] Other - see comments Left: Shoulder [employer] 08/02/2026 [id number] / N/A / [id number] [employer] 23.036 Ncb Anatomical Shoulder 4.5mm 36mm Inverse Reverse Lock Self Tap - Sn/A - [id number] Implanted:Qty: 1 on 12/14/2019 by Oscar Martini MD at [facility] Screw Left: Shoulder [employer] 04/02/202423.036 / N/A / [id number] Description:REF [employer] [id number] Glenosphere 36mm +5mm Offset - Sn/A - [id number] Implanted:Qty: 1 on 12/14/2019 by Oscar Martini MD at [facility] Left: Shoulder [employer] 04/02/2029 [id number] / N/A / [id number] Description:REF [id number] Procedures Procedure Name Priority Date/Time Associated [...] Electronically signed by: Lino Alcala MD, PHD Oscar Martini MD IMG XR PROCEDURES Fin al Result from Last 3 Months Insurance MEDICARE [facility] MEDICARE [facility] Advance Directives For more information, please contact: [phone] * Full Code (Latest Code Status on File) Date Activated Date Inactivated Comments 12/14/2019 10:54 AM 12/15/2019 3:29 PM Care Teams Communications Tower Climber Relationship Specialty Start Date End Date Joseluis Crisostomo MD PCP - General Family Practice 01/07/22
[2025-02-28 10:15] LABS: Hematocrit 43.7 % (37.0-47.0); Hemoglobin 14.1 g/dL (12.0-15.0); Immature Granulocyte Percent A 0.2 % (0-0.5); Lymphocytes Absolute Auto 1.78 K/mm3 (0.9-3.2); Mean Corpuscular HGB Conc 32.3 g/dl (32-36); Mean Corpuscular Hemoglobin 30.1 pg (26-34); Mean Corpuscular Volume 93.2 fl (80-100); Nucleated Red Blood Cells Absolute Auto 0.000 K/mm3 (0.0-0.012); Nucleated Red Blood Cells Perc 0.0 % (0.0-0.2); Platelet Count Result 231 k/mm3 (150-375); Red Blood Count 4.69 M/mm3 (4.2-5.4); White Blood Count 8.4 K/mm3 (4.5-10.0)
[2025-02-28 11:48] LABS: Alanine Aminotransferase 45 U/L (6-35); Albumin Level 4.1 g/dL (3.5-5.1); Alkaline Phosphatase 83 U/L (38-126); Anion Gap 7 mmol/L (4-12); Aspartate Amino Transferase 41 U/L (14-36); Bilirubin,Total 0.6 mg/dL (0.2-1.3); Blood Urea Nitrogen 14 mg/dL (7-17); Calcium 9.5 mg/dL (8.4-10.2); Carbon Dioxide 26 mmol/L (22-30); Chloride 108 mmol/L (98-107); Cholesterol 180 mg/dL (0-200); Estimated Glomerular Filt Rate > 60; Glucose 96 mg/dL (65-110); HDL Direct 52 mg/dL; Potassium 4.4 mmol/L (3.4-5.0); Sodium 141 mmol/L (137-145); Total Protein 7.1 g/dL (6.3-8.2); Triglycerides 79 mg/dL (<150)
[2025-02-28 12:11] LABS: Thyroid Stimulating Hormone Reflex 1.840 uIU/mL (0.465-4.68)
[2025-03-01 10:55] LABS: Blood Urea Nitrogen 14 mg/dL (8-26); Carbon Dioxide 25 mmol/L (22-30); Chloride 105 mmol/L (98-109); Estimated Glomerular Filt Rate > 60; Glucose 94 mg/dL (70-105); Ionized Calcium (POC) 1.26 mmol/L (1.11-1.31); Potassium 4.3 mmol/L (3.5-4.9); Sodium 142 mmol/L (138-146)
== END 2025-02-28 09:51 | disposition home or self-care (01) ==
LOC: ANHLAB 09:52
PROVIDERS: PCP Family Medicine; Referring Provider Nurse Practitioner Family; Visit Provider Internal Medicine Hematology & Oncology
DX: E55.9 Vitamin D deficiency, unspecified (principal); I10 Essential (primary) hypertension; I82.4Y3 Acute embolism and thrombosis of unspecified deep veins of proximal lower extremity, bilateral
CPT/HCPCS: 36415; 80047; 80053; 80061; 82306; 84443; 85025

== ENCOUNTER 2025-03-20 17:39 | Emergency (ER) | payer MEDICARE, OTHER, SELFPAY ==
--- OUTSIDE RECORDS SUMMARY | 2025-03-20 17:44 | XMS_ITS | Clinical Summary ---
Author Organization [facility] Address [address] [place] [address] Care Team Providers Care Ticket Printer And Tagger Name Role Phone Joseluis Crisostomo MD Primary Care Provider Allergies No known active allergies Medications multivitamin capsuleIndicati ons:Vitamin Deficiency Prevention Take 1 capsule by mouth every morning Active Active Problems Problem Noted Date Diagnosed Date Nontraumatic complete tear of left rotator cuff 09/20/2019 Overview (09/20/2019): Added automatically from request for surgery [id number] Primary osteoarthritis of left shoulder 09/20/19 20 Overview (09/20/2019): Added automatically from request for surgery [id number] Left shoulder pain 09/06/2019 Encounters Date Type Department Care Team Description 12/27/2024 10:00 AM CDT - 12/27/2024 11:59 PM CDT Hospital Encounter [facility] Radiology at [facility] [address] [place] [address] S/P orthopedic surgery, follow-up exam Discharge Disposition: Discharge to home or self care 12/27/2024 9:50 AM CDT Office Visit [facility] Orthopaedic Surgery [address] [facility] 1st Floor [address] [place] [address] Oscar Martini MD S/P orthopedic surgery, follow-up [...] on file 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 Gender Identity Not on file Sexual Orientation [...] (#1) 2025 Medical Devices Implanted Type Area Motor And Generator Assembler Device Identifier Shelf Expiration Date Model / Serial / Lot [employer] [id number] Base Plate 26mm Tm Reverse 20m - Sn/A - [id number] Implanted:Qty: 1 on 12/14/2019 by Oscar Martini MD at [facility] Other - see comments Left: Shoulder [employer] 09/02/2029 [id number] / N/A / [id number] [employer] 23.030 Ncb Anatomical Shoulder 4.5mm 30mm Inverse Reverse Lock Self Tap - Sn/A - [id number] Implanted:Qty: 1 on 12/14/2019 by Oscar Martini MD at [facility] Other - see comments Left: Shoulder [employer] 06/02/202423.030 / N/A / [id number] [employer] [id number] 10mm 130mm Shoulder Stem Humeral Trabecular Metal Tivanium - Sn/A - [id number] Implanted:Qty: 1 on 12/14/2019 by Oscar Martini MD at [facility] Other - see comments Left: Shoulder [employer] 09/02/2029 [id number] / N/A / [id number] [employer] [id number] 36mm Reverse Humerus 7d +0mm Offset Standard Liner Shoulder - Sn/A - [id number] Implanted:Qty: 1 on 12/14/2019 by Oscar Martini MD at [facility] Other - see comments Left: Shoulder [employer] 08/02/2026 [id number] / N/A / [id number] [employer] .036 Ncb Anatomical Shoulder 4.5mm 36mm Inverse Reverse Lock Self Tap - Sn/A - [id number] Implanted:Qty: 1 on 12/14/2019 by Oscar Martini MD at [facility] Screw Left: Shoulder [employer] 04/02/202423.036 / N/A / [id number] Description:REF [employer] [id number] Glenosphere 36mm +5mm Offset - Sn/A - [id number] Implanted:Qty: 1 on 12/14/2019 by Oscar Martini MD at [facility] Left: Shoulder [employer] 04/02/2029 [id number] / N/A / [id number] Description:REF [id number] Procedures Procedure Name Priority Date/Time Associated [...] Result from Last 3 Months Insurance MEDICARE [facility] MEDICARE [facility] Advance Directives For more information, please contact: [phone] * Full Code (Latest Code Status on File) Date Activated Date Inactivated Comments 12/14/2019 10:54 AM 12/15/2019 3:29 PM Care Teams Ticket Printer And Tagger Relationship Specialty Start Date End Date Joseluis Crisostomo MD PCP - General Family Practice 01/07/22
--- OUTSIDE RECORDS SUMMARY | 2025-03-20 17:44 | XMS_ITS | Clinical Summary ---
Author Organization [facility] Kasandra Randall Address [address] [place] [address] Care Team Providers Care Business Continuity Management Director Name Role Phone Joseluis Crisostomo MD Primary Care Provider Allergies No known active allergies Medications lisinopriL (PRINIVIL) 10 mg tablet Take 10 mg by mouth daily. Active rivaroxaban (Xarelto) 10 mg Tablet TAKE 1 TABLET(10 MG) BY MOUTH DAILY WITH SUPPER 90 Tablet 3 09/30/2024 Active Active Problems No known active problems Encounters Date Type Department Care Team Description 03/08/2025 External Device Data STL ABSTRACTION Provider, Abstract 03/07/2025 External Device Data STL ABSTRACTION Provider, Abstract 03/01/2025 Orders Only [facility] Oncology and Hematology A[place] [address] [place] [address] Sea Cha MD 02/28/2025 10:00 AM CDT Office Visit [facility] Oncology and Hematology - [place] [place] [address] Sea Cha MD Acute deep vein thrombosis (DVT) of proximal vein of both lower extremities (CMS/HCC) (Primary Dx) 02/27/2025 Orders Only [facility] Oncology and Hematology A[place] [address] [place] [address] Sea Cha MD Acute deep vein thrombosis [...] on file Legal Sex Female 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 Gender Identity Not on file Sexual Orientation Not on file Last Filed Vital Signs Vital Sign Reading Time Taken Comments Blood Pressure 135/76 02/28/2025 10:18 AM CDT Pulse 65 02/28/2025 10:16 AM CDT Temperature 36.7 C (98 F) 02/28/2025 10:16 AM CDT Respiratory Rate 16 02/28/2025 10:1 6 AM CDT Oxygen Saturation 95% 02/28/2025 10: 16 AM CDT Inhaled Oxygen Concentration - - Weight 80.6 kg (177 lb 12.8 oz) 025 10:16 AM CDT Height 165.1 cm (5' 5) 07/21/2022 2:59 PM CHARGE MASTER ANALYST Body Mass Index 29.59 07/21/2022 2:59 PM CHARGE MASTER ANALYST Plan of Treatment Upcoming Encounters Date Type Department Care Team (Late st Contact Info) Description 02/28/2026 11:00 AM CDT Office Visit [facility] Oncology and Hematology - Aydin [address] [facility] [address] [place] [address] Sea Cha MD [address] [facility] [address] [place] [address] Health Maintenance Due Date Last Done Comments Pre-Diabetes and Diabetes Screening 1958 DTAP/TDAP/TD VACCINES (1 - Tdap) 1977 COLORECTAL SCREENING 2003 Colorectal Cancer Screening [...] ) (1 - 1-dose 75+ series) 2033 Procedures Procedure Name Priority Date/Time Associated Diagnosis Comments BASIC METABOLIC PANEL Routine 02/28/2025 2:42 PM CDT COMPREHENSIVE METABOLIC PANEL Routine 02/28/2025 12:48 PM CDT CBC WITH AUTODIFFERENTIAL Routine 2024 12:40 PM CDT from Last 3 Months Results * BASIC METABOLIC PANEL (02/28/2025 2:42 PM CDT) Blood Sea Cha MD CHEMISTRY ORDERABLES Final Resu lt * COMPREHENSIVE METABOLIC PANEL (02/28/2025 12:48 PM CDT) Blood Sea Cha MD CHEMISTRY ORDERABLES Final Resu lt * CBC WITH AUTODIFFERENTIAL (02/28/2025 12:40 PM CDT) Blood us Sea Cha MD HEMATOLOGY ORDERABLES Final Res ult from Last [address] [facility] MEDICARE PART A AND B Care Teams Business Continuity Management Director Relationship Specialty Start Date End Date Joseluis Crisostomo MD [address] [place] [phone] PCP - General Family Practice 07/21/22
[2025-03-20 17:58] VITALS: BP 156/83; PULSE 73; RESP 20; TEMP 36.3; O2SAT 97
[2025-03-20] MEDS: TETANUS,DIPHTHERIA,AC PERTUSSIS ADULT (0.5 ML) BOOSTRIX IM (18:47)
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
== END 2025-03-20 19:10 | disposition home or self-care (01) ==
PROVIDERS: Emergency Provider Nurse Practitioner; PCP Family Medicine
DX: S71.132A Puncture wound without foreign body, left thigh, initial encounter (principal); W61.39XA Other contact with chicken, initial encounter; Z86.718 Personal history of other venous thrombosis and embolism; Z79.01 Long term (current) use of anticoagulants; Z23 Encounter for immunization
CPT/HCPCS: 90471; 90715; 99213; G0463

== ENCOUNTER 2025-05-26 09:06 | Emergency (ER) | payer MEDICARE, OTHER, SELFPAY ==
[2025-05-26 09:15] VITALS: BP 139/70; PULSE 65; RESP 18; TEMP 36.7; O2SAT 100
--- OUTSIDE RECORDS SUMMARY | 2025-05-26 09:17 | XMS_ITS | Clinical Summary ---
Author Organization [facility] Address [address] [place] [id number] Care Team Providers Care Geomorphology Teacher Name Role Phone Joseluis Crisostomo MD Primary Care Provider Allergies No known active allergies Medications multivitamin capsuleIndicati ons:Vitamin Deficiency Prevention Take 1 capsule by mouth every morning Active Active Problems Problem Noted Date Diagnosed Date Nontraumatic complete tear of left rotator cuff 09/20/2019 Overview (09/20/2019): Added automatically from request for surgery [id number] Primary osteoarthritis of left shoulder 09/20/19 20 Overview (09/20/2019): Added automatically from request for surgery [id number] Left shoulder pain 09/06/2019 Surgical History Surgery [...] Average Number of Drinks Not on file 03/11/2 020 Frequency of Binge Drinking Not on file 10/01 Comments No Sex and Gender Information Value Date Recorded Sex Assigned at Not on file Legal Sex Female 8:05 AM [employer] Gender Identity Not on file Sexual Orientation [...] (#1) 2025 Medical Devices Implanted Type Area Network Systems Integrator Device Identifier Shelf Expiration Date Model / Serial / Lot [employer] [id number] Base Plate 26mm Tm Reverse 20m - Sn/A - [id number] Implanted:Qty: 1 on 12/14/2019 by Oscar Martini MD at [facility] Other - see comments Left: Shoulder [employer] 09/02/2029 [id number] / N/A / [id number] [employer] 75152.030 Ncb Anatomical Shoulder 4.5mm 30mm Inverse Reverse Lock Self Tap - Sn/A - [id number] Implanted:Qty: 1 on 12/14/2019 by Oscar Martini MD at [facility] Other - see comments Left: Shoulder [employer] 06/02/2024 [id number] / N/A / [id number] [employer] [id number] 10mm 130mm Shoulder Stem Humeral Trabecular Metal Tivanium - Sn/A - [id number] Implanted:Qty: 1 on 12/14/2019 by Oscar Martini MD at [facility] Other - see comments Left: Shoulder [employer] 09/02/2029 [id number] / N/A / [id number] [employer] [id number] 36mm Reverse Humerus 7d +0mm Offset Standard Liner Shoulder - Sn/A - [id number] Implanted:Qty: 1 on 12/14/2019 by Oscar Martini MD at [facility] Other - see comments Left: Shoulder [employer] 08/02/2026 [id number] / N/A / [id number] [employer] .036 Ncb Anatomical Shoulder 4.5mm 36mm Inverse Reverse Lock Self Tap - Sn/A - [id number] Implanted:Qty: 1 on 12/14/2019 by Oscar Martini MD at [facility] Screw Left: Shoulder [employer] 04/02/2024.60042.036 / N/A / [id number] Description:REF [employer] [id number] Glenosphere 36mm +5mm Offset - Sn/A - [id number] Implanted:Qty: 1 on 12/14/2019 by Oscar Martini MD at [facility] Left: Shoulder [employer] 04/02/2029 [id number] / N/A / [id number] Description:REF [id number] Insurance MEDICARE [facility] MEDICARE [facility] Advance Directives For more information, please contact: [phone] * Full Code (Latest Code Status on File) Date Activated Date Inactivated Comments 12/14/2019 10:54 AM 12/15/2019 3:29 PM Care Teams Geomorphology Teacher Relationship Specialty Start Date End Date Joseluis Crisostomo MD PCP - General Family Practice 01/07/22
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
== END 2025-05-26 09:32 | disposition home or self-care (01) ==
PROVIDERS: Emergency Provider Nurse Practitioner; PCP Family Medicine
DX: S71.132D Puncture wound without foreign body, left thigh, subsequent encounter (principal); W45.8XXA Other foreign body or object entering through skin, initial encounter; Z86.718 Personal history of other venous thrombosis and embolism
CPT/HCPCS: 99211; G0463